=== PATIENT | female | born 2000 | race Two or more races ===

== ENCOUNTER 2024-07-04 10:04 | Emergency (ER) | payer OTHER ==
[~2024-07-04] VITALS: Ht 170.2 cm; Wt 59.0 kg
[2024-07-04 10:19] VITALS: BP 117/66; TEMP 98.3
[2024-07-04] MEDS ORDERED: CLIN300C12 PO (11:39)
[2024-07-04] MEDS ORDERED: MUPI15CR TP (11:39)
[2024-07-04 11:58] VITALS: O2SAT 99
== END 2024-07-04 11:58 | disposition home or self-care (01) ==
LOC: ER 10:14
DX: S81.011D Laceration without foreign body, right knee, subsequent encounter (principal); Z48.02 Encounter for removal of sutures; Z88.7 Allergy status to serum and vaccine; Z90.49 Acquired absence of other specified parts of digestive tract; X58.XXXD Exposure to other specified factors, subsequent encounter
CPT/HCPCS: 99283; A6403